=== PATIENT | male | born 1995 ===

== ENCOUNTER 2019-02-06 20:29 | Emergency (ER) | payer SELFPAY ==
[2019-02-06 20:55] VITALS: TEMP 98.4
[2019-02-06 22:12] LABS: SQUAMOUS EPITHIAL < 1 /hpf (0-5); URINE BILIRUBIN NEGATIVE (NEGATIVE); URINE BLOOD NEGATIVE (NEGATIVE); URINE CLARITY SLIGHTY-CLOUDY (Clear); URINE COLOR YELLOW (YELLOW); URINE GLUCOSE (UA) NEG (NEGATIVE); URINE HYALINE CAST 0-2 /hpf (0-2); URINE LEUKOCYTE ESTERASE NEG Leu/uL (Negative); URINE PROTEIN 30 mg/dL (NEGATIVE); URINE UROBILINOGEN 0.2-1.0 mg/dL (0.2-1.0)
--- NOTE | 2019-02-06 22:16 | ED PDOC ---
HPI: Male Pain Time Seen by Provider: 02/06/19 21:15 Chief Complaint (Nursing): Male Genitourinary Chief Complaint (Provider): Male Genitourinary History/Exam Limitations: no limitations Onset/Duration Of Symptoms: Days (3X) Current Symptoms Are (Timing): Still Present Additional Complaint(s): 23 year old male patient with no past medical history presents to the ED with groin/testicular pain which radiates to back onset 3 days ago. Patient reports that he was having sex when he slammed his penis and heard a pop. Patient states that his penis was crooked and leaned towards the left. Patient reports that the pain was on the left testicular side but is now on the right testicular side and radiates to his back. Patient stated mild hesitation while urinating and has been taking Motrin. Patient states that he continued to have sex despite injury. Patient denies testicular swelling. PMD: None Provided Past Medical History Reviewed: Historical Data, Nursing Documentation, Vital Signs Vital Signs: Last Vital Signs Temp 98.4 F 02/06/19 20:51 Pulse 96 H 02/06/19 20:51 Resp 16 02/06/19 20:51 BP 146/102 H 02/06/19 20:51 Pulse Ox 100 02/06/19 20:51 RAD[facility] Report Viewed: Yes - Medical History PMH: No Chronic Diseases - Surgical History Surgical History: Tonsillectomy Other surgeries: circumcision, Adenoidectomy - Family History Family History: States: No Known Family Hx - Allergies Allergies/Adverse Reactions: Allergies Allergy/AdvReac Type Severity Reaction Status Date / Time No Known Allergies Allergy Verified 02/06/19 21:07 Review of Systems ROS Statement: Except As Marked, All Systems Reviewed And Found Negative Genitourinary Male: Positive for: Scrotal Pain, Penile Pain, Other (mild hesitance while urinating ) Physical Exam - Reviewed Nursing Documentation Reviewed: Yes Vital Signs Reviewed: Yes - Physical Exam Appears: Positive for: Well, Non-toxic, No Acute Distress Head Exam: Positive for: ATRAUMATIC, NORMAL INSPECTION, NORMOCEPHALIC Skin: Positive for: Normal Color, Warm, DRY Eye Exam: Positive for: EOMI, Normal appearance, PERRL Cardiovascular/Chest: Positive for: Regular Rate, Rhythm. Negative for: Murmur Gastrointestinal/Abdominal: Positive for: Normal Exam, Soft, Tenderness Male Genital Exam: Positive for: normal genitalia (with no bending, curving, devation or ecchymosis;soft, nontender and normal color. ), no hernia, scrotum tenderness (R) (mild right lateral scrotum tenderness ), other (testicles had appropriate position and were aligned in scrotum). Negative for: erythema, hernia mass, inguinal tenderness, testicular tenderness (R) (testicular swelling or redness. ), testicular tenderness (L) Back: Positive for: L CVA Tenderness, R CVA Tenderness Extremity: Positive for: Normal ROM (upper and lower). Negative for: Deformity Neurological/Psych: Positive for: Awake, Alert, Oriented (x3). Negative for: Motor/Sensory Deficits, Facial Droop - ECG O2 Sat by Pulse Oximetry: 100 (RA) Pulse Ox Interpretation: Normal - Progress Re-evaluation Time: 00:45 Condition: Re-examined, Improved Medical Decision Making Medical Decision Makin:15 Initial Impression: 23 year old male with groin/scrotum and back pain Differential Diagnosis includes but is not limited to: groin strain, muscle strain, testicular torsion, hernia varicocele, less likely kidney stones renal colic, and no penile fracture. Plan: * Urinalysis * Testes Duplex complete 00:15 Testes Duplex US FINDINGS: RIGHT TESTICLE: Right testicle measures 3.6 x 1.9 x 3.1 cm. No focal lesions. LEFT TESTICLE: Left testicle measures 4.8 x 2.1 x 2.8 cm. No focal lesions. EPIDIDYMIDES: Right epididymal head measures 1.1 cm in greatest dimension. It contains 2 small epididymal head cysts measuring no more than 0.4 cm each. The left epididymal head measures 0.9 centimeters in greatest dimension. Left epididymal head contains a small epididymal head cyst measuring 0.4 cm. SCROTUM: There is a small left hydrocele. MISCELLANEOUS: Both testicles demonstrate microlithiasis. This is nonspecific but is correlated with a slightly increased risk of developing testicular cancer over time. Please correlate clinically and if indicated periodic ultrasound surveillance could be obtained. Both testicles demonstrate normal symmetric Doppler waveforms. IMPRESSION: 1. Both testicles demonstrate microlithiasis. This is nonspecific but is correlated with a slightly increased risk of developing testicular cancer over time. Please correlate clinically and if indicated periodic ultrasound surveillance could be obtained. 2. There is a small left hydrocele. 6. Both testicles demonstrate normal symmetric Doppler waveforms. 7. No evidence for acute abnormality. Scribe Attestation: Documented by Dgina Malagon, acting as a scribe for Tejinder Bradshaw MD Provider Scribe Attestation: All medical record entries made by the Scribe were at my direction and personally dictated by me. I have reviewed the chart and agree that the record accurately reflects my personal performance of the history, physical exam, medical decision making, and the department course for this patient. I have also personally directed, reviewed, and agree with the discharge instructions and disposition. Disposition - Clinical Impression Clinical Impression: Testicular microlithiasis, Scrotal pain - Patient ED Disposition Is Patient to be Admitted: No Doctor Will See Patient In The: Office Counseled Patient/Family Regarding: Studies Performed, Diagnosis, Need For Followup - Disposition Referrals: Brian Felix Jr., MD [Staff Provider] - Abeba Yuan MD [Medical Doctor] - Disposition: Routine/Home Disposition Time: 00:46 Condition: GOOD Additional Instructions: SHEY CLAYTON, thank you for letting us take care of you today. Your provider was Tejinder Bradshaw MD and you were treated for GROIN INJURY. The emergency medical care you received today was directed at your acute symptoms. If you were prescribed any medication, please fill it and take as directed. It may take several days for your symptoms to resolve. Return to the Emergency Department if your symptoms worsen, do not improve, or if you have any other problems. Please contact your doctor or call one of the physicians/clinics you have been r eferred to that are listed on the Patient Visit Information form that is included in your discharge packet. Bring any paperwork you were given at discharge with you along with any medications you are taking to your follow up visit. Our treatment cannot replace ongoing medical care by a primary care provider outside of the emergency department. Thank you for allowing the [facility] team to be part of your care today. Instructions: Hydrocele, Testicular Injury
[2019-02-07 00:44] VITALS: BP 125/89; PULSE 86; RESP 18
[2019-02-07 00:48] VITALS: O2SAT 100
--- NOTE | 2019-02-07 09:39 | US ---
Date of service: 02/06/2019 HISTORY: right scrotal pain TECHNIQUE: Realtime sonography through the scrotum with color and doppler flow. COMPARISON: None Available. FINDINGS: RIGHT TESTICLE: Measures 1.9 x 3.1 x 3.6 cm. Normal echotexture and flow. Testicular microlithiasis identified. RIGHT EPIDIDYMIS: Epididymal head measures 0.7 x 0.8 x 1.1 cm. 2 small simple right epididymal cysts 3 and 4 mm respectively. LEFT TESTICLE: Measures 2.1 x 2.8 x 4.8 cm. Normal echotexture and flow. Testicular microlithiasis identified. LEFT EPIDIDYMIS: Epididymal head measures 0.4 x 0.9 cm. Simple cyst 3 x 4 mm. HYDROCELE: Small likely physiologic left hydrocele. VARICOCELE: None. OTHER FINDINGS: None. IMPRESSION: Negative study for epididymitis, orchitis, torsion or testicular mass. Additional benign and/or incidental findings described above. Concordant findings (preliminary report) provided by [facility].
== END 2019-02-07 01:15 | disposition home or self-care (01) ==
LOC: H.ER 20:29
DX: N50.89 Other specified disorders of the male genital organs (principal)